=== PATIENT | female | born 1975 | race Two or more races ===

== ENCOUNTER 2025-02-21 01:29 | Inpatient (IN) | payer MEDICAID, OTHER ==
[2025-02-21] VITALS (7 sets, daily range): BP systolic 121–139; BP diastolic 66–77; PULSE 59–68; RESP 14–30; TEMP 97.5–98.2; O2SAT 95–100
[~2025-02-21] VITALS: Ht 149.9 cm; Wt 49.0 kg
--- NOTE | 2025-02-21 02:14 | ED.PDOC ---
History of Present Illness HPI Comments This is a 49-year-old female who denies any past medical history, presented to the ER with a chief complaint of lower abdominal pain for the past 1 day. Patient reports lower abdominal pain, diffuse, radiating to the back for 1 day, patient started vomiting earlier today, has experienced more than 10 vomits, watery to yellow color in nature, nonbloody, nonprojectile, she can not keep any solids or liquid food down at this time. Denies any urinary symptoms. Reports fevers and chills. Denies taking any medications. Reports that last bowel movement was earlier today. Last menstrual period 2 weeks back. Patient is not sexually active for the past 2 months. Past medical history: Denies Home medication: Denies Social history: Reports marijuana was, reports drinking socially, denies drug use. Family lives in [place], patient requested not to contact family Patient seen and examined in ER CBC, CMP ordered. 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 History: No Pertinent SUPERVISOR MIRROR FABRICATION History Constitutional: reports: chills, fever, weakness EENTM: denies: blurred vision, double vision, ear bleeding, ear discharge, ear drainage, ear pain, ear ringing, eye pain, eye redness, hearing loss, mouth pain, mouth swelling, nasal discharge, nose bleeding, nose congestion, nose pain, photophobia, tearing, throat pain, throat swelling, voice changes, others Respiratory: denies: cough, hemoptysis, orthopnea, SOB at rest, shortness of breath, SOB with excertion, stridor, wheezing, others Cardiovascular: denies: chest pain, dizzy spells, diaphoresis, Dyspnea on exertion, edema, irregular heart beat, left arm pain, lightheadedness, palpitations, PND, syncope, others Gastrointestinal: reports: abdominal pain, constipated, poor fluid intake Genitourinary: denies: abnormal vagina bleeding, burning, dyspareunia, dysuria, flank pain, frequency, hematuria, incontinence, pain, , vagina discharge, urgency, others Neurological: denies: dizziness, fainting, headache, left sided numbness, left sided weakness, numbness, paresthesia, pre-existing deficit, right sided numbness, right sided weakness, seizure, speech problems, tingling, tremors, weakness, others Musculoskeletal: denies: back pain, gout, joint pain, joint swelling, muscle pain, muscle stiffness, neck pain, others Integumetry: denies: bruises, change in color, change in hair/nails, dryness, laceration, lesions, lumps, rash, wounds, others Allergic/Immunocompromised: denies: Difficulty Healing, Frequent Infections, Hives, Itching, others Hematologic/Lymphatic: denies: anemia, blood clots, easy bleeding, easy bruising, swollen glands, others Endocrine: denies: excessive hunger, excessive sweating, excessive thirst, excessive urination, flushing, intolerance to cold, intolerance to heat, unexplained weight gain, unexplained weight loss, others Psychiatric: denies: anxiety, bipolar disorder, depression, hopeless, panic disorder, schizophrenia, sleepless, suicidal, others Physical Exam General Appearance: Moderate Distress, Normal HEENT: Normal ENT Inspection, Pharynx Normal, TMs Normal Neck: Full Range of Motion, Non-Tender, Normal, Normal Inspection Respiratory: Chest Non-Tender, Lungs Clear, No Accessory Muscle Use, No Respiratory Distress, Normal Breath Sounds Cardiovascular: No Edema, No JVD, No Murmur, No Gallop, Normal Peripheral Pulses, Regular Rate/Rhythm Breast Exam: Deferred Gastrointestinal: Normal Bowel Sounds, Soft, Tenderness Genitalia: Deferred Pelvic: Deferred Rectal: Deferred Extremities: No calf tenderness, Normal capillary refill, Normal inspection, Normal range of motion, Non-tender, No pedal edema Musculoskeletal : Apperance: Normal Neurologic: Alert, power and recovery supervisor II-XII nml as Tested, No Motor Deficits, Normal Affect, Normal Mood, No Sensory Deficits Cerebellar Function: Normal Reflexes: Normal Skin: Dry, Normal Color, Warm Lymphatic: No Adenopathy Was a procedure done? Was a procedure done?: No Differential Dx Considerations may include: Colitis/constipation/SBO/Alannah/UTI/pyelonephritis X-Ray, Labs, Meds, VS Vital Signs Date Time Temp Pulse Resp B/P (MAP) Pulse Ox O2 Delivery O2 Flow Rate FiO2 02/21/25 03:55 97.9 81 18 136/82 (100) 95 97.9 02/21/25 03:53 Room Air* 0 21 02/21/25 01:29 98.5 84 16 129/72 99 98.5 Lab Test 02/21/25 02:16 Range/Units White Blood Count 7.6 4.4-10.8 10^3/uL Red Blood Count 5.18 4.0-5.20 10^6/uL Hemoglobin 13.4 12.2-16.2 g/dL Hematocrit 41.8 36.0-46.0 % Mean Corpuscular Volume 80.6 80.0-100.0 fL Mean Corpuscular Hemoglobin 25.9 L 28.0-32.0 pg Mean Corpuscular Hemoglobin Concent 32.1 32.0-36.0 g/dL Red Cell Distribution Width 16.1 H 11.8-14.3 % Platelet Count 317 140-450 10^3/uL Mean Platelet Volume 7.2 6.9-10.8 fL Neutrophils (%) (Auto) 77.2 37.0-80.0 % Lymphocytes (%) (Auto) 18.7 10.0-50.0 % Monocytes (%) (Auto) 2.9 0.0-12.0 % Eosinophils (%) (Auto) 0.4 0.0-7.0 % Basophils (%) (Auto) 0.8 0.0-2.0 % Neutrophils # (Auto) 5.9 1.6-8.6 10 ^3/uL Lymphocytes # (Auto) 1.4 0.4-5.4 10 ^3/uL Monocytes # (Auto) 0.2 0-1.3 10 ^3/uL Eosinophils # (Auto) 0 0-0.8 10 ^3/uL Basophils # (Auto) 0.1 0-0.2 10 ^3/uL Nucleated Red Blood Cells 0.0 % Sodium Level 143 136-145 mmol/L Potassium Level 3.6 3.5-5.1 mmol/L Chloride Level 106 98-107 mmol/L Carbon Dioxide Level 27 20-31 mmol/L Anion Gap 10 5-15 Blood Urea Nitrogen 7 L 9-23 mg/dL Creatinine 0.86 0.550-1.02 mg/dL Glomerular Filtration Rate Calc 83 >90 mL/min BUN/Creatinine Ratio 8.1 L 10.0-20.0 Serum Glucose 164 H 74-106 mg/dL Calcium Level 9.0 8.7-10.4 mg/dL Lipase 28 12-53 U/L Beta HCG, Quantitative 0.6 L 1.5-4.2 mIU/mL Current Medications Medications (Trade) Dose Ordered Sig/Alex Route Start Time Stop Time Status Last Admin Ondansetron HCl (Zofran) 4 mg ONCE ONCE IM 02/21/25 02:15 02/21/25 02:18 DC 02/21/25 03:41 Ketorolac Tromethamine (Toradol Injection) 15 mg ONCE ONCE IV 02/21/25 03:00 02/21/25 03:03 DC 02/21/25 03:41 Time of 1ST Reevaluation: 03:00 Reevaluation 1ST: Unchanged Time of 2ND Reevaluation: 04:00 Reevaluation 2ND: Unchanged Patient Education/Counseling: Diagnosis, Treatment, Need For Follow Up Family Education/Counseling: No Family Present SEPSIS Sepsis Screen Date sepsis recognized/suspect: Feb 21, 2025 Time Sepsis recognized/suspect: 128 Recent Procedure: No On Antibiotic Therapy: No Respiratory Rate >20: No Heart Rate >90: No Temp<36 C (96.8 F) or >38.3 C: No SBP <90 or MAP <65 mmHG: No New Acute Mental Status Change: No Is the patient on CPAP, BIPAP,: No Physician Orders Urinalysis (02/21/25 02:09) Electrocardigram (02/21/25 02:09) Ct Ab Pel Wo Con-No Oral Or Iv (02/21/25 02:59) Npo (Nothing By Mouth) Diet (02/21/25 Breakfast) Ceftriaxone 1gm/50ml (Rocephin) (02/21/25 04:00) Metronidazole 500mg/100ml (Flagyl 500mg/ (02/21/25 04:00) Lactated Ringer's (02/21/25 04:00) Ng To Lis (02/21/25 03:52) Place Ng (02/21/25 03:52) Pantoprazole (Protonix) (02/21/25 04:15) Vital Signs Date Time Temp Pulse Resp B/P (MAP) Pulse Ox O2 Delivery O2 Flow Rate FiO2 02/21/25 03:55 97.9 81 18 136/82 (100) 95 97.9 02/21/25 03:53 Room Air* 0 21 02/21/25 01:29 98.5 84 16 129/72 99 98.5 Laboratory Tests Test 02/21/25 02:16 White Blood Count 7.6 10^3/uL (4.4-10.8) Medications Medications Dose Ordered Sig/Alex Route Start Time Stop Time Status Last Admin Dose Admin Ketorolac Tromethamine 15 mg ONCE ONCE IV 02/21/25 03:00 02/21/25 03:03 DC 02/21/25 03:41 Ondansetron HCl 4 mg ONCE ONCE IM 02/21/25 02:15 02/21/25 02:18 DC 02/21/25 03:41 Departure 1 Departure Time of Disposition: 04:00 Impression: Primary Impression: Large bowel obstruction Additional Impressions: Alannah syndrome Fecal impaction in rectum Disposition: 30 STILL A PATIENT Condition: Fair Additional Instructions: IV ceftriaxone, IV metronidazole, IV Protonix, IV LR NG to LIS NPO CT abdomen shows [place] syndrome, large bowel obstruction, maximum diameter less than 12 cm Patient we will be admitted to the facility Critical Care Note Critical Care Time?: No Stability Stability form required: INA Dasilva RESIDENT Feb 21, 2025 02:14
[2025-02-21 02:29] LABS: Hematocrit 41.8 % (36.0-46.0); Hemoglobin 13.4 g/dL (12.2-16.2); Mean Corpuscular Hemoglobin 25.9 pg (28.0-32.0); Mean Corpuscular Volume 80.6 fL (80.0-100.0); Nucleated Red Blood Cells % 0.0 %
[2025-02-21 02:37] LABS: Chloride 106 mmol/L (98-107); Potassium 3.6 mmol/L (3.5-5.1); Sodium 143 mmol/L (136-145)
[2025-02-21 02:38] LABS: Anion Gap 10 (5-15); Calcium 9.0 mg/dL (8.7-10.4); Carbon Dioxide 27 mmol/L (20-31)
[2025-02-21 02:43] LABS: BUN/Creatinine Ratio 8.1 (10.0-20.0)
[2025-02-21 02:54] LABS: Blood Urea Nitrogen 7 mg/dL (9-23); Glucose 164 mg/dL (74-106)
[2025-02-21] MEDS: ONDANSETRON HCL 4 MG/2 ML VIAL IM ONE (03:41)
[2025-02-21] MEDS: KETOROLAC TROMETH 30 MG/ML 1ML VIAL IV ONE (03:41)
--- NOTE | 2025-02-21 03:43 | DVH ---
Exam: CT CT AB PEL WO CON-NO ORAL OR IV History: Lower abdominal pain, intractable, radiating to back Comparison Study: None Technique: Multidetector spiral CT of the abdomen was performed from lung bases to pubic symphysis. I maging was performed without IV contrast. Axial, coronal and sagittal multiplanar reformats were obta ined from the axial data set by the technologist. Radiation Dose : 1. Abdomen/Pelvis: CTDIvol 5.08 mGy, DLP 252.59 mGy*cm. Findings: Evaluation of solid organs is limited due to lack of intravenous contrast use. Lung Bases: No acute or significant lung base finding. Normal heart size. No pleural or pericardial effusion. Liver: The liver is normal in size. No focal lesions. Gallbladder and Biliary Tree: Cholelithiasis. Spleen: Unremarkable Pancreas: The pancreas is grossly normal in appearance. Adrenal Glands: Unremarkable Kidneys: 1.9 cm focus of diminished parenchymal attenuation within the left interpolar kidney may rep resent a cyst, however, pyelonephritis can not be completely excluded. No evidence of calculi or hydr onephrosis. Bladder: Grossly unremarkable for degree of distention. Bowel: Small hiatal hernia with air-fluid level. Markedly dilated stool-filled primarily large bowel segments and evidence of rectal fecal impaction with maximum diameter measuring 9.4 cm. The appendix is not visualized; however, no secondary findings of acute appendicitis identified. Ascites: Absent Lymphadenopathy: No mesenteric, retroperitoneal or periportal lymphadenopathy. Abdominal Wall and Mesentery: Unremarkable. Vasculature: The visualized abdominal aorta is normal in size and caliber. Atherosclerotic vascular c alcifications. Evaluation of abdominal and pelvic vessels is limited due to lack of intravenous contr ast. Pelvic Organs: Unremarkable Musculoskeletal: No aggressive focal bony lesions, acute fractures or dislocation. IMPRESSION: 1. Markedly dilated stool-filled primarily large bowel segments and evidence of rectal fecal impactio n. 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 2. Small hiatal hernia with air-fluid level. 3. Cholelithiasis. 4. 1.9 cm focus of diminished parenchymal attenuation within the left interpolar kidney may represent a cyst, however, pyelonephritis can not be completely excluded. Radiation optimization: All CT scans at this facility use at least one of these dose optimization susannah hniques: automated exposure control mA and/or kV adjustment per patient size (includes targeted exam s where dose is matched to clinical indication) or iterative reconstruction.
[2025-02-21] MEDS: LACTATED RINGER'S 1,000 ML IV ONE (04:00)
[2025-02-21] MEDS ORDERED: SODIUM CHLORIDE 0.9% 1,000 ML IV SCH (05:15)
[2025-02-21] MEDS ORDERED: ONDANSETRON HCL 4 MG/2 ML VIAL IV PRN (05:15)
[2025-02-21] MEDS: SODIUM CHLORIDE 0.9% 500 ML IV ONE (05:46)
[2025-02-21] MEDS: PANTOPRAZOLE 40 MG/10 ML VIAL INJ IV SCH (05:46)
[2025-02-21] MEDS: PANTOPRAZOLE 40 MG/10 ML VIAL INJ IV ONE (05:50)
--- NOTE | 2025-02-21 06:16 | DVHHPRES ---
History of Present Illness Resident Creating Document: ANTHONY HURT RESIDENT History of Present Illness This is a 49-year-old female with no significant past medical history, presented to the ER with chief complain of abdominal pain. The pain started 2-3 days ago, described as sharp, 10/10, worsens with eating and drinking. The pain is associated with nausea, vomiting, abdominal swelling, constipation. She reportedly vomited 10 times yesterday and has not been able to put anything down because of nausea and vomiting. No blood seen in vomitus. The patient reported having chronic constipation, she reports this has been the most. She also reported unintentional weight loss 20 lb since last year. She denies taking any opioid medications at home, she has never completed any colonoscopy. Denies fever, diarrhea, blood in stools or dark-colored stools. PMHx: Chronic constipation PSHx: No surgeries in past Family history: History of cancer in grandfather, unsure Social history: Smoking 1 pack per day for 30 years, occasional alcohol use. Marijuana use (last use yesterday), reports no other drug use. Full code. Next of kin best friend (Barbara) Home medication: No home medications Allergic history: No known allergies Patient was examined at bedside today. She is in acute distress and is admitted for further evaluation and management. Try to place NG tube but failed, presented epistaxis after attempt. Review of Systems Gastrointestinal: Nausea, Vomiting, Abdominal Pain, Constipation Allergies: Coded Allergies: NO KNOWN ALLERGIES (Unverified , 02/21/25) Medications Current Medications Medications Dose Ordered Sig/Alex Route Start Time Stop Time Status Last Admin Dose Admin Ondansetron HCl 4 mg Q4HP PRN IV 02/21/25 05:15 Sodium Chloride 1,000 ml @ 50 mls/hr Q20H IV 02/21/25 05:15 Pantoprazole Sodium 40 mg DAILY IV 02/21/25 05:15 Exam Vital Signs Vital Signs Date Time Temp Pulse Resp B/P (MAP) Pulse Ox O2 Delivery O2 Flow Rate FiO2 02/21/25 03:55 97.9 81 18 136/82 (100) 95 97.9 02/21/25 03:53 Room Air* 0 21 Exam General: Patient is in Acute distress. Patient alert and oriented in person, place and time. Patient following commands. HEENT: Dry mucous membranes. Epistaxis after failed attempt of NG tube placement Respiratory/pulmonary: Clear lungs bilaterally, vesicular murmurs present in almost all lung liang, no associated crackles or wheezes. Cardiovascular: Normal heart sounds S1 and S2 with no associated murmurs Abdomen: Tense, distended abdomen, diffuse tenderness on palpation, tympanic sounds on percussion. Reduced bowel sound on auscultation Extremities: There is no peripheral edema present at the lower extremities. Peripheral Pulses: 3+ Radial (R). 3+ Radial (L). 3+ Dorsalis pedis (R). 3+ Dorsalis pedis(L) Skin: Dry scaly skin. No rashes or pruritus, there is no sacral edema present at this time. Neurological: Intact cranial nerves with no focal neurologic deficits ANGEL: Soft stool in rectum. No impaction, blood, external hemorrhoids on ANGEL. Sensation of stricture beyond rectal vault Labs/Xrays Labs Test 02/21/25 05:50 02/21/25 02:16 Range/Units White Blood Count 7.6 4.4-10.8 10^3/uL Red Blood Count 5.18 4.0-5.20 10^6/uL Hemoglobin 13.4 12.2-16.2 g/dL Hematocrit 41.8 36.0-46.0 % Mean Corpuscular Volume 80.6 80.0-100.0 fL Mean Corpuscular Hemoglobin 25.9 L 28.0-32.0 pg Mean Corpuscular Hemoglobin Concent 32.1 32.0-36.0 g/dL Red Cell Distribution Width 16.1 H 11.8-14.3 % Platelet Count 317 140-450 10^3/uL Mean Platelet Volume 7.2 6.9-10.8 fL Neutrophils (%) (Auto) 77.2 37.0-80.0 % Lymphocytes (%) (Auto) 18.7 10.0-50.0 % Monocytes (%) (Auto) 2.9 0.0-12.0 % Eosinophils (%) (Auto) 0.4 0.0-7.0 % Basophils (%) (Auto) 0.8 0.0-2.0 % Neutrophils # (Auto) 5.9 1.6-8.6 10 ^3/uL Lymphocytes # (Auto) 1.4 0.4-5.4 10 ^3/uL Monocytes # (Auto) 0.2 0-1.3 10 ^3/uL Eosinophils # (Auto) 0 0-0.8 10 ^3/uL Basophils # (Auto) 0.1 0-0.2 10 ^3/uL Nucleated Red Blood Cells 0.0 % Lipase 28 12-53 U/L Beta HCG, Quantitative 0.6 L 1.5-4.2 mIU/mL SEPSIS Sepsis Screen Date sepsis recognized/suspect: Feb 21, 2025 Time Sepsis recognized/suspect: 128 Recent Procedure: No On Antibiotic Therapy: No Respiratory Rate >20: No Heart Rate >90: No Temp<36 C (96.8 F) or >38.3 C: No SBP <90 or MAP <65 mmHG: No New Acute Mental Status Change: No Is the patient on CPAP, BIPAP,: No Physician Orders Urinalysis (02/21/25 02:09) Electrocardigram (02/21/25 02:09) Ct Ab Pel Wo Con-No Oral Or Iv (02/21/25 02:59) Npo (Nothing By Mouth) Diet (02/21/25 Breakfast) Lactated Ringer's (02/21/25 04:00) Ng To Lis (02/21/25 03:52) Place Ng (02/21/25 03:52) Admit (02/21/25 05:15) Allergies (02/21/25 05:15) Code Status (02/21/25 05:15) Ondansetron Hcl (Zofran) (02/21/25 05:15) Condition: Stable (02/21/25 05:15) Stat Ekg For Chest Pain (02/21/25 05:15) Notify Md Of Changes From Base (02/21/25 05:15) Emergency Dysrhythmia Protocol (02/21/25 05:15) Rhythm Strips Once Every Shift (02/21/25 05:15) Sodium Chloride 0.9% (02/21/25 05:15) Pantoprazole (Protonix) (02/21/25 05:15) * Gi Dvh Property Controller (02/21/25 05:15) * Surgical Consult (02/21/25 ) Drug Screen (02/21/25 05:15) Thyroid Stimulating Hormone (02/21/25 05:15) Magnesium (02/21/25 05:15) Phosphorus (02/21/25 05:15) Hemoglobin A1c (02/21/25 05:15) PTPTT (02/21/25 05:15) Vitamin B12 (02/21/25 05:15) Sequential Compression Device (02/21/25 05:32) Comprehensive Metabolic Panel (02/21/25 06:00) Lactic Acid W/ Reflex Order (02/21/25 06:12) Morphine Sulfate Injection (02/21/25 06:15) Vital Signs Date Time Temp Pulse Resp B/P (MAP) Pulse Ox O2 Delivery O2 Flow Rate FiO2 02/21/25 03:55 97.9 81 18 136/82 (100) 95 97.9 02/21/25 03:53 Room Air* 0 21 02/21/25 01:29 98.5 84 16 129/72 99 98.5 Laboratory Tests Test 02/21/25 02:16 White Blood Count 7.6 10^3/uL (4.4-10.8) Medications Medications Dose Ordered Sig/Alex Route Start Time Stop Time Status Last Admin Dose Admin Ceftriaxone Sodium 50 ml @ 100 mls/hr ONCE ONCE IV 02/21/25 04:00 02/21/25 04:29 DC 02/21/25 05:50 100 MLS/HR Ketorolac Tromethamine 15 mg ONCE ONCE IV 02/21/25 03:00 02/21/25 03:03 DC 02/21/25 03:41 15 MG Ondansetron HCl 4 mg ONCE ONCE IM 02/21/25 02:15 02/21/25 02:18 DC 02/21/25 03:41 4 MG Pantoprazole Sodium 40 mg ONCE ONCE IV 02/21/25 04:15 02/21/25 04:16 DC 02/21/25 05:50 40 MG Sodium Chloride 500 ml @ 500 mls/hr Q1H ONCE IV 02/21/25 05:15 02/21/25 06:14 DC 02/21/25 05:46 500 MLS/HR Assessment/Plan Assessment/Plan Acute Bowel Obstruction Rule out GI malignancy [place] syndrome Chronic constipation Acute abdomen Surgery, GI consulted CT abdomen showed Markedly dilated stool-filled primarily large bowel segments and evidence of rectal fecal impaction. NPO for bowel rest IV NS bolus and maintenance IV morphine for pain management IV pantoprazole ordered Ordered NG tube placement Small hiatal hernia Cholelithiasis Kidney cyst CT abdomen shows small hiatal hernia, cholelithiasis, 1.9 cm cyst History of cannabinoid use Drug screen ordered DIET: NPO for bowel rest DVT PROPHYLAXIS: Sequential compression device GI PROPHYLAXIS: Protonix CODE STATUS: Goals of care discussed with patient, nurses at bedside for more than 35 minutes. Full code DISPOSITION: Med/surge Patient's status and plan discussed with the patient. Case discussed with Dr. Sarmiento. Plan discussed with: Patient, Other (Nurses) My Orders Orders - ANTHONY HURT RESIDENT Procedure Category Date Status Time Morphine Sulfate PHA 02/21/25 Transmitted Injection 06:15 Date of Service: Feb 21, 2025 Billing Provider: NANCY SARMIENTO MD Common Visit Codes: 27744-ZOLOWER INP/OBS CARE (HIGH) Secondary Visit Codes: 84201-[id number] CARE PLAN 30 MINUTES ANTHONY HURT RESIDENT Feb 21, 2025 06:16 BOB BENOIT Feb 21, 2025 08:34
[2025-02-21 06:24] LABS: Alanine Aminotransferase 15 U/L (7-40); Albumin 4.1 g/dL (3.2-4.8); Alkaline Phosphatase 71 U/L (46-116); Anion Gap 10 (5-15); BUN/Creatinine Ratio 10.0 (10.0-20.0); Bilirubin, Total 0.7 mg/dL (0.2-1.0); Blood Urea Nitrogen 8 mg/dL (9-23); Calcium 9.0 mg/dL (8.7-10.4); Carbon Dioxide 26 mmol/L (20-31); Chloride 107 mmol/L (98-107); Glucose 120 mg/dL (74-106); Potassium 3.7 mmol/L (3.5-5.1); Sodium 143 mmol/L (136-145); Total Protein 7.2 g/dL (5.7-8.2)
[2025-02-21 06:28] LABS: INR 1.04 (0.9-1.15); Partial Thromboplastin Time 27.0 SEC (24.5-34.5); Prothrombin Time 11.0 sec (9.3-11.8)
[2025-02-21] MEDS: MORPHINE SULFATE INJ 2 MG/ml SYRG IV PRN (06:28)
[2025-02-21 06:29] LABS: Magnesium 1.9 mg/dL (1.6-2.6)
[2025-02-21 08:01] LABS: Hematocrit 39.8 % (36.0-46.0); Hemoglobin 13.0 g/dL (12.2-16.2); Mean Corpuscular Hemoglobin 26.2 pg (28.0-32.0); Mean Corpuscular Volume 80.4 fL (80.0-100.0); Nucleated Red Blood Cells % 0.1 %
--- NOTE | 2025-02-21 08:16 | DVH ---
Date: 02/21/2025 07:20 AM Examination: XY KUB ABDOMEN SINGLE VIEW History: pneumoperitoneum Comparison: CT CT AB PEL WO CON-NO ORAL OR IV on DOS: 02/21/25 TECHNIQUE: Frontal views of the abdomen was obtained. FINDINGS: Markedly dilated stool-filled primarily large bowel segments and evidence of rectal fecal impaction. 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 The lung bases are unremarkable. No acute osseous abnormality identified. IMPRESSION: Markedly dilated stool-filled primarily large bowel segments and evidence of rectal fecal impaction. Findings are consistent with possible [place] syndrome.
[2025-02-21] MEDS: LACTATED RINGER'S 1,000 ML IV SCH (10:09)
--- NOTE | 2025-02-21 11:12 | DVHINCON2 ---
Consultation - Surgical Date Seen: Feb 21, 2025 Referring Physician Reason for Consultation Extreme constipation with rectal fecal impaction History of Present Illness History of Present Illness Mrs. Lindo this is a 49-year-old female who presented to the ED with 3 days of abdominal distention associated with nausea vomiting and no bowel movement, but passing flatus. Patient states that she does not have the greatest diet, eats a lot of junk food and suffers from chronic constipation. She stated that this morning she had a very tiny bowel movement and had a push a lot for it. Denies any fevers, chills, changes in urinary habits, personal family history of shade williamson. Patient has never had a upper or lower endoscopy. States that she had a 20 lb weight loss in the last 11 month but it was due to being depressed and stressed. Denies loss of appetite. Past Medical/Surgical History Past Medical/Surgical History PMH sinusitis, seasonal allergies, constipation PSH denies Family and Social History Family and Social History Family history of breast cancer on mom's and dad's side T Ob 34 pack year smoking history ETOH occasional Drugs marijuana occasional Allergies and medications Allergies: Coded Allergies: NO KNOWN ALLERGIES (Unverified , 02/21/25) Home Meds No Active Prescriptions or Reported Meds Review of systems Review of Systems: HEENT:Normal, CVS:Normal, RESPIRATORY:Normal, GI:Abnormal (See HPI), :Normal, MSK:Normal, NEURO:Normal Examination Vital signs Vital Signs Date Time Temp Pulse Resp B/P (MAP) Pulse Ox O2 Delivery O2 Flow Rate FiO2 02/21/25 07:57 98.1 67 16 125/74 (91) 100 98.1 02/21/25 03:53 Room Air* 0 21 Medications Current Medications Medications (Trade) Dose Ordered Sig/Alex Route PRN Reason Start Time Stop Time Status Last Admin Ondansetron HCl (Zofran) 4 mg Q4HP PRN IV NAUSEA / VOMITING 02/21/25 05:15 Sodium Chloride 1,000 ml @ 50 mls/hr Q20H IV 02/21/25 05:15 02/21/25 07:12 DC Pantoprazole Sodium (Protonix) 40 mg DAILY IV 02/21/25 05:15 Morphine Sulfate 2 mg Q4HPRN PRN IV SEVERE PAIN (7-10 PAIN SCALE) 02/21/25 06:15 02/21/25 06:28 Lactated Ringer's 1,000 ml @ 75 mls/hr [id number] IV 02/21/25 07:15 02/21/25 10:09 Laboratory Labs Test 02/21/25 08:05 02/21/25 05:50 02/21/25 02:16 Range/Units Lactic Acid Level 1.1 0.4-2.0 mmol/L White Blood Count 7.3 4.4-10.8 10^3/uL Red Blood Count 4.96 4.0-5.20 10^6/uL Hemoglobin 13.0 12.2-16.2 g/dL Hematocrit 39.8 36.0-46.0 % Mean Corpuscular Volume 80.4 80.0-100.0 fL Mean Corpuscular Hemoglobin 26.2 L 28.0-32.0 pg Mean Corpuscular Hemoglobin Concent 32.6 32.0-36.0 g/dL Red Cell Distribution Width 15.9 H 11.8-14.3 % Platelet Count 295 140-450 10^3/uL Mean Platelet Volume 8.0 6.9-10.8 fL Neutrophils (%) (Auto) 88.4 H 37.0-80.0 % Lymphocytes (%) (Auto) 9.0 L 10.0-50.0 % Monocytes (%) (Auto) 2.3 0.0-12.0 % Eosinophils (%) (Auto) 0.0 0.0-7.0 % Basophils (%) (Auto) 0.3 0.0-2.0 % Neutrophils # (Auto) 6.5 1.6-8.6 10 ^3/uL Lymphocytes # (Auto) 0.7 0.4-5.4 10 ^3/uL Monocytes # (Auto) 0.2 0-1.3 10 ^3/uL Eosinophils # (Auto) 0 0-0.8 10 ^3/uL Basophils # (Auto) 0 0-0.2 10 ^3/uL Nucleated Red Blood Cells 0.1 % Prothrombin Time 11.0 9.3-11.8 sec Prothrombin Time INR 1.04 0.9-1.15 Activated Partial Thromboplast Time 27.0 24.5-34.5 SEC Sodium Level 143 136-145 mmol/L Potassium Level 3.7 3.5-5.1 mmol/L Chloride Level 107 98-107 mmol/L Carbon Dioxide Level 26 20-31 mmol/L Anion Gap 10 5-15 Blood Urea Nitrogen 8 L 9-23 mg/dL Creatinine 0.80 0.550-1.02 mg/dL Glomerular Filtration Rate Calc 91 >90 mL/min BUN/Creatinine Ratio 10.0 10.0-20.0 Serum Glucose 120 H 74-106 mg/dL Hemoglobin A1c 5.2 <5.7 % A1C Calcium Level 9.0 8.7-10.4 mg/dL Phosphorus Level 3.6 2.4-5.1 mg/dL Magnesium Level 1.9 1.6-2.6 mg/dL Total Bilirubin 0.7 0.2-1.0 mg/dL Aspartate Amino Transferase (AST) 25 13-40 U/L Alanine Aminotransferase (ALT) 15 7-40 U/L Alkaline Phosphatase 71 46-116 U/L Total Protein 7.2 5.7-8.2 g/dL Albumin 4.1 3.2-4.8 g/dL Vitamin B12 Level 593 211-911 pg/mL Thyroid Stimulating Hormone (TSH) 2.09 0.55-4.78 uIU/mL Lipase 28 12-53 U/L Beta HCG, Quantitative 0.6 L 1.5-4.2 mIU/mL Examination: GENERAL:Normal, ABDOMEN:Abnormal (Very distended, soft, depressible, nontender), Any Other System: (Rectal: No fissures, no hemorrhoids, intact tone, no masses, soft stool throughout rectal vault, no gross blood) Problem List/Assessment/Plan Problems: (1) Constipation (2) Fecal impaction in rectum Assessment and Plan Mrs. Lindo same 49-year-old female who presented with severe constipation that started [address] was reviewed and it shows reece dilation of the colon and rectum with large quantities of fecal material throughout. Patient states she continues to have tiny bowel movements and passing gas. ANGEL performed at bedside, no masses felt, stool in the rectal vault (soft). Patient will benefit from aggressive bowel regimen with p.o. and rectal cathartics. Recommend 1. Soapsuds enemas every 6 hours for 24 hours 2. After 24 hours of soapsuds enemas, can give 1 gal of GoLYTELY 3. We will continue to monitor Plan discussed with Plan discussed with: Patient Visit Coding Surgery Date of Service if different f: Feb 21, 2025 Billing Provider: ADDISON VELAZCO MD Surgery Visit Codes: 43346 - INP CONSULT <110 MIN ADDISON VELAZCO MD Feb 21, 2025 11:12
--- NOTE | 2025-02-21 14:01 | DVHPNRES ---
Progress Note Date Seen: Feb 21, 2025 Resident Creating Document: LUCAS SEGOVIA RESIDENT Medical Necessity Reason Pt with a Central, PICC or Fol: No Subjective Review of Systems This is a 49-year-old female with no significant past medical history, presented to the ER with chief complain of abdominal pain. The pain started 2-3 days ago, described as sharp, 10/10, worsens with eating and drinking. The pain is associated with nausea, vomiting, abdominal swelling, constipation. She reportedly vomited 10 times yesterday and has not been able to put anything down because of nausea and vomiting. No blood seen in vomitus. The patient reported having chronic constipation alternating with diarrhea, she reports this has been the most. She also reported unintentional weight loss 20 lb since last year. She denies taking any opioid medications at home, she has never completed any colonoscopy. Denies fever, diarrhea, blood in stools or dark-colored stools. PMHx: Chronic constipation PSHx: No surgeries in past Family history: History of cancer in grandfather, unsure Social history: Smoking 1 pack per day for 30 years, occasional alcohol use. Marijuana use (last use yesterday), reports no other drug use. Full code. Next of kin best friend (Barbara) Home medication: No home medications Allergic history: No known allergies The patient was seen and examined at bedside. Overnight events were reviewed. The patient reported having chronic constipation alternating with diarrhea, she also have episodes of belching with excessive flatulence. This morning, the patient had a small amount of bowel movement after a lot of straining. Reports improvement in her abdominal pain. She had several episodes of vomiting since yesterday, however she did not have any since morning. The patient denies any chest pain, shortness of breath, fever, urinary symptoms. Objective vital signs Vital Sign Date Time Temp Pulse Resp B/P (MAP) Pulse Ox O2 Delivery O2 Flow Rate FiO2 02/21/25 07:57 98.1 67 16 125/74 (91) 100 98.1 02/21/25 03:53 Room Air* 0 21 medications Current Medications Medications Dose Ordered Sig/Alex Route Start Time Stop Time Status Last Admin Dose Admin Ondansetron HCl 4 mg Q4HP PRN IV 02/21/25 05:15 Pantoprazole Sodium 40 mg DAILY IV 02/21/25 05:15 Morphine Sulfate 2 mg Q4HPRN PRN IV 02/21/25 06:15 02/21/25 06:28 2 MG Lactated Ringer's 1,000 ml @ 75 mls/hr [id number] IV 02/21/25 07:15 02/21/25 10:09 75 MLS/HR Examination Pt is lying on bed General Appearance: Alert, Oriented X3, Cooperative, Mild distress HEENT: Atraumatic, Mucous membranes moist/pink Respiratory: Clear to auscultation, Normal air movement, No added sounds Cardiovascular: Regular rate, Normal S1, Normal S2, No murmurs Abdominal/ : High-pitched bowel sounds, hard, abdominal distention, mild diffuse tenderness, shifting dullness negative. 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 X-ray KUB: Markedly dilated stool-filled primarily large bowel segments and evidence of rectal fecal impaction. 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 NPO except ice chips for bowel rest IV NS bolus and maintenance IV morphine for pain management IV pantoprazole ordered Hold off NG tube placement, unless the patient starts vomiting. Surgery recommendations appreciated. Soapsuds enemas every 6 hours for 24 hours. After 24 hours of soapsuds enemas, 1 gal of Golytely GI consult stations also recommended to continue with enema and monitoring. The patient is counseled to eat high-fiber diet. Small hiatal hernia Cholelithiasis Kidney cyst CT abdomen shows small hiatal hernia, cholelithiasis, 1.9 cm cyst Pantoprazole Monitor signs symptoms. History of cannabinoid use Drug screen ordered GI prophylaxis: Pantoprazole DVT prophylaxis: SCDs Diet: NPO except ice chips Goals of care discussed with the patient for more than 27 minutes: Full code status Case discussed with Dr. Narvaez, patient and RN Plan discussed with: Patient, Other (RN) My Orders My Orders Orders - LUCAS SEGOVIA Procedure Category Date Status Time Tap Water Enema ORDERS 02/21/25 Transmitted 08:02 * Gi D[facility] Student Outreach Coordinator CONS 02/21/25 Transmitted 12:46 * Debt Management Counselor CONS 02/21/25 Transmitted Consult Date of Service: Feb 21, 2025 Billing Provider: BOB NARVAEZ MD Common Visit Codes: [id number] INP/OBS CARE(HIGH) Secondary Visit Codes: [id number] CARE PLAN 30 MINUTES LUCAS SEGOVIA Feb 21, 2025 14:01 BOB NARVAEZ MD Feb 23, 2025 00:46
--- NOTE | 2025-02-21 15:21 | DVHINCON2 ---
GI Consult Consult Note GI consult note Date of Consultation: 02/21/2025 Chief Complaint: Bowel obstruction Referring Physician: Dr. Fields H&P: 49-year-old female admitted with complains of abdominal pain which started about three days ago, described as sharp and seems to worsen when eating and drinking. Patient also has moderate abdominal bloating. Had nausea and vomiting two days ago. No nausea or vomiting at this time. Denies hematemesis. Patient has history of constipation, which has been worse in the past two years. No colonoscopy in past. Patient admits to weight loss of 20 lb. Patient has been having multiple bowel movements after the enema. No melena or red blood in stool Past Medical History: Chronic constipation Past Surgical History: Denies Social History: Smoking 1 pack per day for 30 years, occasional alcohol use. Marijuana use (last use yesterday), reports no other drug use. Family History: Noncontributory Review of Systems: Constitutional: no fever, chill, weight loss HEENT: no eye pain, no hearing loss, no oral lesion, no scleral icterus Heart: no chest pain, no chest pressure Lung: no cough, no dyspnea with exertion Abdomen: see HPI Physical exam: General: NAD, AAOX3 Chest: lung liang clear to auscultation Heart: RRR, no murmur Abdomen: Moderate-distended, diffuse mild tenderness to palpation, +BS Labs: Labs Test 02/21/25 08:05 02/21/25 05:50 02/21/25 02:16 Range/Units Lactic Acid Level 1.1 0.4-2.0 mmol/L White Blood Count 7.3 4.4-10.8 10^3/uL Red Blood Count 4.96 4.0-5.20 10^6/uL Hemoglobin 13.0 12.2-16.2 g/dL Hematocrit 39.8 36.0-46.0 % Mean Corpuscular Volume 80.4 80.0-100.0 fL Mean Corpuscular Hemoglobin 26.2 L 28.0-32.0 pg Mean Corpuscular Hemoglobin Concent 32.6 32.0-36.0 g/dL Red Cell Distribution Width 15.9 H 11.8-14.3 % Platelet Count 295 140-450 10^3/uL Mean Platelet Volume 8.0 6.9-10.8 fL Neutrophils (%) (Auto) 88.4 H 37.0-80.0 % Lymphocytes (%) (Auto) 9.0 L 10.0-50.0 % Monocytes (%) (Auto) 2.3 0.0-12.0 % Eosinophils (%) (Auto) 0.0 0.0-7.0 % Basophils (%) (Auto) 0.3 0.0-2.0 % Neutrophils # (Auto) 6.5 1.6-8.6 10 ^3/uL Lymphocytes # (Auto) 0.7 0.4-5.4 10 ^3/uL Monocytes # (Auto) 0.2 0-1.3 10 ^3/uL Eosinophils # (Auto) 0 0-0.8 10 ^3/uL Basophils # (Auto) 0 0-0.2 10 ^3/uL Nucleated Red Blood Cells 0.1 % Prothrombin Time 11.0 9.3-11.8 sec Prothrombin Time INR 1.04 0.9-1.15 Activated Partial Thromboplast Time 27.0 24.5-34.5 SEC Sodium Level 143 136-145 mmol/L Potassium Level 3.7 3.5-5.1 mmol/L Chloride Level 107 98-107 mmol/L Carbon Dioxide Level 26 20-31 mmol/L Anion Gap 10 5-15 Blood Urea Nitrogen 8 L 9-23 mg/dL Creatinine 0.80 0.550-1.02 mg/dL Glomerular Filtration Rate Calc 91 >90 mL/min BUN/Creatinine Ratio 10.0 10.0-20.0 Serum Glucose 120 H 74-106 mg/dL Hemoglobin A1c 5.2 <5.7 % A1C Calcium Level 9.0 8.7-10.4 mg/dL Phosphorus Level 3.6 2.4-5.1 mg/dL Magnesium Level 1.9 1.6-2.6 mg/dL Total Bilirubin 0.7 0.2-1.0 mg/dL Aspartate Amino Transferase (AST) 25 13-40 U/L Alanine Aminotransferase (ALT) 15 7-40 U/L Alkaline Phosphatase 71 46-116 U/L Total Protein 7.2 5.7-8.2 g/dL Albumin 4.1 3.2-4.8 g/dL Vitamin B12 Level 593 211-911 pg/mL Thyroid Stimulating Hormone (TSH) 2.09 0.55-4.78 uIU/mL Lipase 28 12-53 U/L Beta HCG, Quantitative 0.6 L 1.5-4.2 mIU/mL Imaging: CT abdomen pelvis IMPRESSION: 1. Markedly dilated stool-filled primarily large bowel segments and evidence of rectal fecal impaction. 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 2. Small hiatal hernia with air-fluid level. 3. Cholelithiasis. 4. 1.9 cm focus of diminished parenchymal attenuation within the left interpolar kidney may represent a cyst, however, pyelonephritis can not be completely excluded. KUB IMPRESSION: Markedly dilated stool-filled primarily large bowel segments and evidence of rectal fecal impaction. 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 Assessment: Constipation Fecal impaction Plan: Discussed with Dr. Dicksno Rogel We will continue to monitor patient Discussed plan with patient and RN Date of Service: Feb 21, 2025 Billing Provider: LANEY ORTIZ Common Visit Codes: CONSULT ONLY Consultation Codes: [id number] CONSULT <60MIN LANEY ORTIZ Feb 21, 2025 15:21
[2025-02-22 01:00] VITALS: BP 105/65; PULSE 80; RESP 14; TEMP 97.5; O2SAT 98
[2025-02-22 05:00] VITALS: BP 119/69; PULSE 69; RESP 18; TEMP 97.7; O2SAT 98
[2025-02-22 07:28] LABS: Nucleated Red Blood Cells % 0.1 %
[2025-02-22 07:31] LABS: Hematocrit 37.5 % (36.0-46.0); Hemoglobin 12.0 g/dL (12.2-16.2); Mean Corpuscular Hemoglobin 26.3 pg (28.0-32.0); Mean Corpuscular Volume 81.9 fL (80.0-100.0)
[2025-02-22 07:32] LABS: Chloride 102 mmol/L (98-107); Potassium 4.1 mmol/L (3.5-5.1)
[2025-02-22 07:33] LABS: Anion Gap 12 (5-15); Carbon Dioxide 22 mmol/L (20-31)
[2025-02-22 07:38] LABS: BUN/Creatinine Ratio 10.3 (10.0-20.0)
[2025-02-22 07:42] LABS: Blood Urea Nitrogen 7 mg/dL (9-23); Calcium 8.6 mg/dL (8.7-10.4); Glucose 74 mg/dL (74-106); Sodium 136 mmol/L (136-145)
[2025-02-22 09:00] VITALS: BP 109/69; PULSE 65; RESP 18; TEMP 98.1; O2SAT 98
--- NOTE | 2025-02-22 10:19 | DVHPN2 ---
Progress Note - Dictate Date Seen: Feb 22, 2025 Medical Necessity Reason Pt with a Central, PICC or Fol: No Subjective Multiple bowel movements( 11) recorded vital signs Vital Sign Date Time Temp Pulse Resp B/P (MAP) Pulse Ox O2 Delivery O2 Flow Rate FiO2 02/22/25 08:00 Room Air* 0 21 02/22/25 05:00 97.7 69 18 119/69 (86) 98 97.7 Total Intake and Output 02/21/25 02/21/25 02/22/25 15:00 23:00 07:00 Intake Total 1000 ml Balance 1000 ml medications Current Medications Medications Dose Ordered Sig/Alex Route Start Time Stop Time Status Last Admin Dose Admin Ondansetron HCl 4 mg Q4HP PRN IV 02/21/25 05:15 Pantoprazole Sodium 40 mg DAILY IV 02/21/25 05:15 02/22/25 10:06 40 MG Morphine Sulfate 2 mg Q4HPRN PRN IV 02/21/25 06:15 02/21/25 06:28 2 MG Lactated Ringer's 1,000 ml @ 75 mls/hr [id number] IV 02/21/25 07:15 02/22/25 05:11 75 MLS/HR objective General: NAD, AAOX3 Chest: lung liang clear to auscultation Heart: RRR, no murmur Abdomen: Moderate-distended, diffuse mild tenderness to palpation, +BS laboratory and microbiology Laboratory Tests 02/22/25 06:55 Test 02/22/25 06:55 Range/Units Serum Glucose 74 74-106 mg/dL Problems(with codes): (1) Constipation (2) Alannah syndrome (3) Fecal impaction in rectum (4) Large bowel obstruction Prognosis Plan Advance diet as tolerated Maintained on stool softeners and MiraLax daily Outpatient follow up with GI Services to discuss elective colonoscopy for colon cancer screening Plan discussed with: Other (Arlet Glass) ZANE GIBSON MD Feb 22, 2025 10:19
--- NOTE | 2025-02-22 10:36 | DVH ---
Date: 02/22/2025 09:13 AM Examination: XY KUB ABDOMEN SINGLE VIEW History: obstruction, abdominal distension Comparison: XY KUB ABDOMEN SINGLE VIEW on DOS: 02/21/25, CT CT AB PEL WO CON-NO ORAL OR IV on DOS: 01/29 10/21 TECHNIQUE: Frontal views of the abdomen was obtained. Findings:Markedly dilated stool-filled primarily large bowel segments and evidence of rectal fecal im paction. 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 The lung bases are unremarkable. No acute osseous abnormality identified.Impression: No interval change.
[2025-02-22 12:33] LABS: Urine Protein, UAD Negative (Negative)
[2025-02-22 12:59] LABS: Cannabinoid Screen, Urine Pos (NEGATIVE); Cocaine Screen, Urine Neg (NEGATIVE)
[2025-02-22 13:00] VITALS: BP 130/78; PULSE 70; RESP 18; TEMP 98.1; O2SAT 99
[2025-02-22 13:02] LABS: Amphetamine Screen, Urine Neg (NEGATIVE)
[2025-02-22 13:03] LABS: Barbiturate Scree,Urine Neg (NEGATIVE); Benzodiazephine Screen, Urine Neg (NEGATIVE); Opiate Scree,Urine Neg (NEGATIVE)
--- NOTE | 2025-02-22 13:03 | DVHPN2 ---
Progress Note - Surgical Date Seen: Feb 22, 2025 Post op day Post op day: 0 Subjective Patient reports: Feels better (Patient feeling better, less distended, not nauseous, no vomiting.) Review of Systems: Deferred Objective Vital signs Vital Sign Date Time Temp Pulse Resp B/P (MAP) Pulse Ox O2 Delivery O2 Flow Rate FiO2 02/22/25 09:00 98.1 65 18 109/69 (82) 98 98.1 02/22/25 08:00 Room Air* 0 21 Total Intake and Output 02/21/25 02/21/25 02/22/25 15:00 23:00 07:00 Intake Total 1000 ml Balance 1000 ml Medications Current Medications Medications Dose Ordered Sig/Alex Route Start Time Stop Time Status Last Admin Dose Admin Ondansetron HCl 4 mg Q4HP PRN IV 02/21/25 05:15 Pantoprazole Sodium 40 mg DAILY IV 02/21/25 05:15 02/22/25 10:06 40 MG Morphine Sulfate 2 mg Q4HPRN PRN IV 02/21/25 06:15 02/21/25 06:28 2 MG Lactated Ringer's 1,000 ml @ 75 mls/hr [id number] IV 02/21/25 07:15 02/22/25 05:11 75 MLS/HR Laboratory Laboratory Tests 02/22/25 06:55 Test 02/22/25 06:55 Range/Units Serum Glucose 74 74-106 mg/dL Examination: GENERAL:Normal, ABDOMEN:Abnormal (Distended (less than yesterday), soft, depressible, nontender.) Labs and/or images reviewed: Labs reviewed by me (Labs within normal limits) Problem List/Assessment/Plan Problems: (1) Constipation Assessment and Plan Mrs. Lindo same 49-year-old female who presented with severe constipation that started [address] was reviewed and it shows reece dilation of the colon and rectum with large quantities of fecal material throughout. Patient states she continues to have tiny bowel movements and passing gas. ANGEL performed at bedside, no masses felt, stool in the rectal vault (soft). Patient will benefit from aggressive bowel regimen with p.o. and rectal cathartics. Interval: Soapsuds enemas were helpful in getting some of the stool volume out, patient today's less distended and softer. She is not feeling nauseous or vomiting anymore. She will definitely benefit from GoLYTELY administration today. Recommend 1. 1 gal of GoLYTELY today 2. We will continue to monitor Plan discussed with Plan discussed with: Patient Visit Coding Surgery Date of Service if different f: Feb 22, 2025 Billing Provider: ADDISON VELAZCO MD Surgery Visit Codes: [id number] INP/OBS CARE(HIGH) ADDISON VELAZCO MD Feb 22, 2025 13:03
[2025-02-22 13:25] LABS: Phencyclidine Screen, Urine NEGATIVE (NEGATIVE)
[2025-02-22] MEDS: GOLYTELY 4L KIT PO ONE (14:06)
[2025-02-22] MEDS ORDERED: CLINIMIX PER PHARMACY 0 ML IV SCH (15:15)
--- NOTE | 2025-02-22 16:08 | DVHPNRES ---
Progress Note Date Seen: Feb 22, 2025 Resident Creating Document: JULIETTE,LUCAS RESIDENT Medical Necessity Reason Pt with a Central, PICC or Fol: No Subjective Review of Systems This is a 49-year-old female with no significant past medical history, presented to the ER with chief complain of abdominal pain. The pain started 2-3 days ago, described as sharp, 10/10, worsens with eating and drinking. The pain is associated with nausea, vomiting, abdominal swelling, constipation. She reportedly vomited 10 times yesterday and has not been able to put anything down because of nausea and vomiting. No blood seen in vomitus. The patient reported having chronic constipation alternating with diarrhea, she reports this has been the most. She also reported unintentional weight loss 20 lb since last year. She denies taking any opioid medications at home, she has never completed any colonoscopy. Denies fever, diarrhea, blood in stools or dark-colored stools. PMHx: Chronic constipation PSHx: No surgeries in past Family history: History of cancer in grandfather, unsure Social history: Smoking 1 pack per day for 30 years, occasional alcohol use. Marijuana use (last use yesterday), reports no other drug use. Full code. Next of kin best friend (Barbara) Home medication: No home medications Allergic history: No known allergies The patient was seen and examined at bedside. Overnight events were reviewed. The patient reports improvement in her symptoms, she denies any abdominal pain, nausea, or vomiting today. With enema, she passed some amount of stool, she feels her abdomen is soft today. The patient was very grateful for the outcome. Objective vital signs Vital Sign Date Time Temp Pulse Resp B/P (MAP) Pulse Ox O2 Delivery O2 Flow Rate FiO2 02/22/25 13:00 98.1 70 18 130/78 (95) 99 98.1 02/22/25 08:00 Room Air* 0 21 Total Intake and Output 02/21/25 02/21/25 02/22/25 15:00 23:00 07:00 Intake Total 1000 ml Balance 1000 ml medications Current Medications Medications Dose Ordered Sig/Alex Route Start Time Stop Time Status Last Admin Dose Admin Ondansetron HCl 4 mg Q4HP PRN IV 02/21/25 05:15 Pantoprazole Sodium 40 mg DAILY IV 02/21/25 05:15 02/22/25 10:06 40 MG Morphine Sulfate 2 mg Q4HPRN PRN IV 02/21/25 06:15 02/21/25 06:28 2 MG Lactated Ringer's 1,000 ml @ 75 mls/hr [id number] IV 02/21/25 07:15 02/22/25 05:11 75 MLS/HR Amino Acids 0 ml @ 0 mls/hr PER PHARMACY IV 02/22/25 15:15 Amino Acids/ Electrolytes/ Dextrose 1,000 ml @ 41 mls/hr DAILY@2200 IV 02/22/25 22:00 Diagnostic Test (Pha) 1 strip Q6HR 02/23/25 00:00 Insulin Human Regular FOLLOW SLIDING SCALE Q6HR SC 02/23/25 00:00 Dextrose 50 ml UD IV 02/22/25 22:00 Examination Examination Pt is lying on bed General Appearance: Alert, Oriented X3, Cooperative, Mild distress HEENT: Atraumatic, Mucous membranes moist/pink Respiratory: Clear to auscultation, Normal air movement, No added sounds Cardiovascular: Regular rate, Normal S1, Normal S2, No murmurs Abdominal/ : Bowel sounds present, abdomen is soft but tender, mildly distended. No shifting dullness present. 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 X-ray KUB on 02/21/2025: Markedly dilated stool-filled primarily large bowel segments and evidence of rectal fecal impaction. Findings are consistent with possible [place] syndrome. X-ray KUB on 02/22/2025:Markedly dilated stool-filled primarily large bowel segments and evidence of rectal fecal impaction. Findings are consistent with possible [place] syndrome. The lung bases are unremarkable. No acute osseous abnormality identified.Impression: No interval change. Surgery recommendations appreciated: NPO GoLYTELY enema today. Magnesium, phosphorus level ordered, pending results IV amino acid infusion Clinimix per pharmacy PEG 3350 KCl sodium bicarb 1 kit p.o. once 1. IV NS bolus and maintenance IV morphine for pain management IV pantoprazole ordered Hold off NG tube placement, unless the patient starts vomiting. GI consultstations also recommended to continue with enema and monitoring. The patient is counseled to eat high-fiber diet. Normocytic normochromic anemia Anemia of chonic disease monitor labs Hyperglycemia Glucose Accu-Chek every 6 hours. HbA1c 5.2 Small hiatal hernia Cholelithiasis Kidney cyst CT abdomen shows small hiatal hernia, cholelithiasis, 1.9 cm cyst Pantoprazole Monitor signs symptoms. Marijuana and tobacco use disorder drug screen positive Counseled on marijuana/tobacco use cessation for 22 minutes; exclusively 12 minutes for tobacco use cessation GI prophylaxis: Pantoprazole DVT prophylaxis: SCDs Diet: NPO Goals of care discussed with the patient for 20 minutes: Full code status Case discussed with Dr. Youssef, patient and RN Plan discussed with: Patient, Other (RN) Plan discussed with: Patient, Other (RN) My Orders My Orders Orders - LUCAS SEGOVIA RESIDENT Procedure Category Date Status Time Npo Except Ice Chips JAKOB 02/21/25 In Process 17:47 Communication Order ORDERS 02/22/25 Transmitted 08:11 Date of Service: Feb 22, 2025 Billing Provider: MARY BETH YOUSSEF MD Common Visit Codes: [id number] INP/OBS CARE(HIGH) Secondary Visit Codes: [id number] CHNG SMOKING >10MIN (Counseled on marijuana/tobacco use cessation for 22 minutes; exclusively 12 minutes for tobacco use cessation), [id number] CARE PLAN 30 MINUTES (20 minuts) Addendum Addendum Addendum I was physically present for the long portions of the service provided to patient by THE RESIDENT. I have reviewed the documentation, discussed the case with resident and agree with the resident's documentation except as noted. Also the patient's clinical case was discussed with the patient's nurse. This medical document was created using an electronic medical record system with computerized dictation system. Although this document has been carefully reviewed, there might still be some phonetic and typographical errors. These areas are purely typographical due to imperfections of the software programs, and do not reflect any compromise in the patient's medical care. Late signature. LUCAS SEGOVIA Feb 22, 2025 16:08 MARY BETH YOUSSEF MD Feb 25, 2025 05:30
[2025-02-22 16:11] LABS: Magnesium 1.9 mg/dL (1.6-2.6)
[2025-02-22 17:00] VITALS: BP 125/69; PULSE 61; RESP 16; TEMP 98.1; O2SAT 98
[2025-02-22 21:00] VITALS: BP 120/60; PULSE 75; RESP 17; TEMP 98.3; O2SAT 98
[2025-02-22] MEDS: AMINO ACID INFUSION IN D10W 1,000 ML IV SCH (21:12)
[2025-02-22] MEDS ORDERED: DEXTROSE (50%) 50ML SYRG IV SCH (22:00)
[2025-02-22] MEDS: InsuLIN REG 1unit/0.01ml Soln (100units/ml) SC SCH (23:51)
[2025-02-22] MEDS: ACCU-CHEK COMFORT CURVE STRIP VI SCH (23:52)
[2025-02-23 01:00] VITALS: BP 108/65; PULSE 64; RESP 17; TEMP 98; O2SAT 98
[2025-02-23 05:00] VITALS: BP 106/65; PULSE 62; RESP 17; TEMP 98; O2SAT 99
[2025-02-23 07:44] LABS: Magnesium 1.7 mg/dL (1.6-2.6)
[2025-02-23 07:47] LABS: Alanine Aminotransferase 14 U/L (7-40); Albumin 3.7 g/dL (3.2-4.8); Alkaline Phosphatase 60 U/L (46-116); Anion Gap 14 (5-15); BUN/Creatinine Ratio 13.5 (10.0-20.0); Blood Urea Nitrogen 10 mg/dL (9-23); Carbon Dioxide 24 mmol/L (20-31); Chloride 99 mmol/L (98-107); Glucose 79 mg/dL (74-106); Potassium 4.2 mmol/L (3.5-5.1); Sodium 137 mmol/L (136-145); Total Protein 6.4 g/dL (5.7-8.2)
[2025-02-23 07:48] LABS: Bilirubin, Total 1.1 mg/dL (0.2-1.0)
[2025-02-23 07:51] LABS: Calcium 8.6 mg/dL (8.7-10.4)
[2025-02-23 09:00] VITALS: BP 116/69; PULSE 62; RESP 18; TEMP 98.2; O2SAT 98
--- NOTE | 2025-02-23 10:16 | DVH ---
KUB INDICATION: abdominal distention and pain . Comparison: 02/22/2025 FINDINGS: Marked gaseous distention of bowel loops predominantly colon. Large amount of fecal residue in the descending colon rectum IMPRESSION: 1. On previous exam distended colon with large fecal residue in the descending colon and rectum. Questi on impaction
[2025-02-23] MEDS: MAGNESIUM SULFATE 1GM/100ML 100 ML IV ONE (10:56)
--- NOTE | 2025-02-23 10:58 | DVHPN2 ---
Progress Note - Surgical Date Seen: Feb 23, 2025 Post op day Post op day: 0 Subjective Patient reports: Feels better (Patient is feeling much better, way more distended, having lots of bowel movements, still has some GoLYTELY left to drink.) Review of Systems: Deferred Objective Vital signs Vital Sign Date Time Temp Pulse Resp B/P (MAP) Pulse Ox O2 Delivery O2 Flow Rate FiO2 02/23/25 09:00 98.2 62 18 116/69 (85) 98 98.2 02/22/25 20:00 Room Air* 0 21 Total Intake and Output 02/22/25 02/22/25 02/23/25 15:00 23:00 07:00 Intake Total 700 ml 150 ml Balance 700 ml 150 ml Medications Current Medications Medications Dose Ordered Sig/Alex Route Start Time Stop Time Status Last Admin Dose Admin Ondansetron HCl 4 mg Q4HP PRN IV 02/21/25 05:15 Pantoprazole Sodium 40 mg DAILY IV 02/21/25 05:15 02/23/25 09:35 40 MG Morphine Sulfate 2 mg Q4HPRN PRN IV 02/21/25 06:15 02/21/25 06:28 2 MG Lactated Ringer's 1,000 ml @ 75 mls/hr [id number] IV 02/21/25 07:15 02/22/25 05:11 75 MLS/HR Amino Acids 0 ml @ 0 mls/hr PER PHARMACY IV 02/22/25 15:15 Amino Acids/ Electrolytes/ Dextrose 1,000 ml @ 41 mls/hr DAILY@2200 IV 02/22/25 22:00 02/22/25 21:12 41 MLS/HR Diagnostic Test (Pha) 1 strip Q6HR 02/23/25 00:00 02/23/25 05:10 1 STRIP Insulin Human Regular FOLLOW SLIDING SCALE Q6HR SC 02/23/25 00:00 Dextrose 50 ml UD IV 02/22/25 22:00 Laboratory Laboratory Tests 02/23/25 06:07 02/22/25 06:55 Test 02/23/25 06:07 Range/Units Serum Glucose 79 74-106 mg/dL Examination: GENERAL:Normal, ABDOMEN:Abnormal (Distended (very much improved), soft, depressible, nontender) Labs and/or images reviewed: Labs reviewed by me (Within normal limits), Image(s) reviewed by me (KUB from this morning showing large colon dilation with lots of stool) Problem List/Assessment/Plan Problems: (1) Constipation Assessment and Plan Mrs. Lindo same 49-year-old female who presented with severe constipation that started [address] was reviewed and it shows reece dilation of the colon and rectum with large quantities of fecal material throughout. Patient states she continues to have tiny bowel movements and passing gas. ANGEL performed at bedside, no masses felt, stool in the rectal vault (soft). Patient will benefit from aggressive bowel regimen with p.o. and rectal cathartics. Interval: For the 1st 24 hours patient did soapsuds enemas and yesterday she started drinking a gal of GoLYTELY, she still has some GoLYTELY left approximately 32 oz. she had 11 bowel movements yesterday and 3 bowel movements today already. She should finish the GoLYTELY entirely, and once she finishes it she can be started on a diet. Recommend 1. Finish remaining GoLYTELY 2. After GoLYTELY advance diet as tolerated 3. Patient will need education material on proper healthy diet, she is requesting it, she eats a lot of junk food at home 4. She is going to require a screening colonoscopy as outpatient, she has never had one 5. For home I recommended a high-fiber diet, if she requires additional supplementation with Metamucil and/or fiber gummy she needs to drink plenty of water 6. Colace 100 mg p.o. b.i.d. 7. MiraLax 1 packet daily prn constipation 8. Plenty of water intake daily 9. Educated the patient on proper diet, and the need to have at least 1 large soft bowel movement daily 10. I will sign off, please call with any questions or concerns My Orders My Orders Orders - ADDISON VELAZCO MD Procedure Category Date Status Time Npo (Nothing By DIET 02/22/25 Transmitted Mouth) Diet Dinner Plan discussed with Plan discussed with: Patient Visit Coding Surgery Date of Service if different f: Feb 23, 2025 Billing Provider: ADDISON VELAZCO MD Surgery Visit Codes: [id number] INP/OBS CARE(HIGH) ADDISON VELAZCO MD Feb 23, 2025 10:58
--- NOTE | 2025-02-23 11:21 | DVHPNRES ---
Progress Note Date Seen: Feb 23, 2025 Resident Creating Document: JULIETTE,LUCAS RESIDENT Medical Necessity Reason Pt with a Central, PICC or Fol: No Subjective Review of Systems This is a 49-year-old female with no significant past medical history, presented to the ER with chief complain of abdominal pain. The pain started 2-3 days ago, described as sharp, 10/10, worsens with eating and drinking. The pain is associated with nausea, vomiting, abdominal swelling, constipation. She reportedly vomited 10 times yesterday and has not been able to put anything down because of nausea and vomiting. No blood seen in vomitus. The patient reported having chronic constipation alternating with diarrhea, she reports this has been the most. She also reported unintentional weight loss 20 lb since last year. She denies taking any opioid medications at home, she has never completed any colonoscopy. Denies fever, diarrhea, blood in stools or dark-colored stools. PMHx: Chronic constipation PSHx: No surgeries in past Family history: History of cancer in grandfather, unsure Social history: Smoking 1 pack per day for 30 years, occasional alcohol use. Marijuana use (last use yesterday), reports no other drug use. Full code. Next of kin best friend (Barbara) Home medication: No home medications Allergic history: No known allergies The patient was seen and examined at bedside. Overnight events were reviewed. The patient had a large bowel movement after ingestion of GoLYTELY. She reports improvement in her symptoms. She was having some pain surrounding the IV cannula, nurse changed the cannula which resolved the pain. She denies chest pain, shortness of breath, fever or any other complaints today. Objective vital signs Vital Sign Date Time Temp Pulse Resp B/P (MAP) Pulse Ox O2 Delivery O2 Flow Rate FiO2 02/23/25 09:00 98.2 62 18 116/69 (85) 98 98.2 02/22/25 20:00 Room Air* 0 21 Total Intake and Output 02/22/25 02/22/25 02/23/25 15:00 23:00 07:00 Intake Total 700 ml 150 ml Balance 700 ml 150 ml medications Current Medications Medications Dose Ordered Sig/Alex Route Start Time Stop Time Status Last Admin Dose Admin Ondansetron HCl 4 mg Q4HP PRN IV 02/21/25 05:15 Pantoprazole Sodium 40 mg DAILY IV 02/21/25 05:15 02/23/25 09:35 40 MG Morphine Sulfate 2 mg Q4HPRN PRN IV 02/21/25 06:15 02/21/25 06:28 2 MG Lactated Ringer's 1,000 ml @ 75 mls/hr [id number] IV 02/21/25 07:15 02/22/25 05:11 75 MLS/HR Amino Acids 0 ml @ 0 mls/hr PER PHARMACY IV 02/22/25 15:15 Amino Acids/ Electrolytes/ Dextrose 1,000 ml @ 41 mls/hr DAILY@2200 IV 02/22/25 22:00 02/22/25 21:12 41 MLS/HR Diagnostic Test (Pha) 1 strip Q6HR 02/23/25 00:00 02/23/25 05:10 1 STRIP Insulin Human Regular FOLLOW SLIDING SCALE Q6HR SC 02/23/25 00:00 Dextrose 50 ml UD IV 02/22/25 22:00 Examination Examination Pt is lying on bed General Appearance: Alert, Oriented X3, Cooperative, Mild distress HEENT: Atraumatic, Mucous membranes moist/pink Respiratory: Clear to auscultation, Normal air movement, No added sounds Cardiovascular: Regular rate, Normal S1, Normal S2, No murmurs Abdominal/ : Bowel sounds present, abdomen is soft with decreasing tenderness, mildly distended. No shifting dullness present. Extremities: No edema, Normal pulses, No tenderness/swelling Skin: No Significant rash, except past surgical scars Neuro: Normal speech, sensorimotor deficits none Psych/Mental Status: Mental status NL, Mood NL Nurse was there as field consultant during examination laboratory and microbiology Laboratory Tests 02/23/25 06:07 02/22/25 06:55 Test 02/23/25 06:07 Range/Units Serum Glucose 79 74-106 mg/dL Labs and/or images reviewed: Labs reviewed by me, Image(s) reviewed by me Problem List/Assessment/Plan Problem List/Assessment/Plan Acute Bowel Obstruction Rule out GI malignancy Ogilive syndrome Chronic constipation due to rectal impaction CT abdomen showed Markedly dilated stool-filled primarily large bowel segments and evidence of rectal fecal impaction. X-ray KUB on 02/21/2025: Markedly dilated stool-filled primarily large bowel segments and evidence of rectal fecal impaction. 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 X-ray KUB on 02/22/2025:Markedly dilated stool-filled primarily large bowel segments and evidence of rectal fecal impaction. 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 The lung bases are unremarkable. No acute osseous abnormality identified.Impression: No interval change. X-ray KUB on 02/23/2025:FINDINGS: Marked gaseous distention of bowel loops predominantly colon. Large amount of fecal residue in the descending colon, rectum Large amount of bowel movement followed by GoLYTELY, manual disimpaction not required. Surgery recommendations appreciated: Advance diet as tolerated, patient currently on clear liquid Magnesium, phosphorus level WNL Colace 100 mg p.o. b.i.d. MiraLax p.r.n. Outpatient screening colonoscopy as per surgery recommendations. IV amino acid infusion Clinimix per pharmacy PEG 3350 KCl sodium bicarb 1 kit p.o. once 1. IV NS bolus and maintenance IV morphine for pain management IV pantoprazole ordered Hold off NG tube placement, unless the patient starts vomiting. GI consultstations also recommended to continue with enema and monitoring. The patient is counseled to eat high-fiber diet. Educated patient on proper healthy diet. Patient is advised to take plenty of water Normocytic normochromic anemia Anemia of chonic disease monitor labs Hyperglycemia Glucose Accu-Chek every 6 hours. HbA1c 5.2 Small hiatal hernia Cholelithiasis Kidney cyst CT abdomen shows small hiatal hernia, cholelithiasis, 1.9 cm cyst Pantoprazole Monitor signs symptoms. Marijuana and tobacco use disorder drug screen positive counseled regarding cessation GI prophylaxis: Pantoprazole DVT prophylaxis: SCDs Diet: Clear liquid Case discussed with Dr. Youssef, patient and RN Plan discussed with: Patient, Other (RN) Dietary Evaluation Review Comments: 1) Increase TPN rate to meet at least 75% of estimated daily needs 2) Advance to GI soft diet when medically feasible 3) Follow-up with gastroenterology 4) Continue to monitor I&O, labs, and skin integrity Expected Outcomes/Goals: 1) nutritional support to meet at least 75% of estimated daily needs 2) diet to advance 3) GI symptoms to resolve 4) f/u in 3-5 days Addendum Addendum Addendum I was physically present for the long portions of the service provided to patient by THE RESIDENT. I have reviewed the documentation, discussed the case with resident and agree with the resident's documentation except as noted. Also the patient's clinical case was discussed with the patient's nurse. This medical document was created using an electronic medical record system with computerized dictation system. Although this document has been carefully reviewed, there might still be some phonetic and typographical errors. These areas are purely typographical due to imperfections of the software programs, and do not reflect any compromise in the patient's medical care. Late signature. Date of Service: Feb 23, 2025 Billing Provider: MARY BETH YOUSSEF MD Common Visit Codes: [id number] INP/OBS CARE(HIGH) LUCAS SEGOVIA RESIDENT Feb 23, 2025 11:21 MARY BETH YOUSSEF MD Feb 25, 2025 05:35
[2025-02-23 12:54] VITALS: BP 136/73; PULSE 63; RESP 20; TEMP 97.9; O2SAT 96
[2025-02-23] MEDS ORDERED: POLYETHYLENE GLYCOL 17 GM PWDR PO PRN (13:30)
[2025-02-23] MEDS: SODIUM PHOSPHATES 24 MEQ in SODIUM CHL 0.9% 100 ML IV ONE (16:11)
[2025-02-23 16:54] VITALS: BP 113/67; PULSE 67; RESP 18; TEMP 98.2; O2SAT 97
[2025-02-23 21:00] VITALS: BP 127/71; PULSE 62; RESP 17; TEMP 98; O2SAT 96
[2025-02-23] MEDS: DOCUSATE SOD 100 MG CAP PO SCH (22:21)
[2025-02-24 01:00] VITALS: BP 108/64; PULSE 57; RESP 18; TEMP 97.7; O2SAT 95
[2025-02-24 05:00] VITALS: BP 112/65; PULSE 57; RESP 18; TEMP 98; O2SAT 97
[2025-02-24 07:59] LABS: Alanine Aminotransferase 13 U/L (7-40); Albumin 3.3 g/dL (3.2-4.8); Alkaline Phosphatase 54 U/L (46-116); Anion Gap 9 (5-15); Carbon Dioxide 28 mmol/L (20-31); Chloride 102 mmol/L (98-107); Magnesium 1.7 mg/dL (1.6-2.6); Sodium 139 mmol/L (136-145); Total Protein 5.9 g/dL (5.7-8.2)
[2025-02-24 08:00] LABS: BUN/Creatinine Ratio 6.6 (10.0-20.0); Bilirubin, Total 1.0 mg/dL (0.2-1.0); Blood Urea Nitrogen < 5 mg/dL (9-23); Calcium 8.2 mg/dL (8.7-10.4); Glucose 106 mg/dL (74-106); Potassium 3.2 mmol/L (3.5-5.1)
[2025-02-24 09:00] VITALS: BP 127/76; PULSE 62; RESP 16; TEMP 98.4; O2SAT 98
[2025-02-24] MEDS: MAGNESIUM SULFATE 1GM/100ML 100 ML IV ONE (10:53)
[2025-02-24] MEDS: POTASSIUM EFFERVESENT TAB 25 MEQ PO ONE (10:53)
[2025-02-24 13:00] VITALS: BP 114/80; PULSE 70; RESP 17; TEMP 98.3; O2SAT 98
[2025-02-24 17:00] VITALS: BP 112/79; PULSE 73; RESP 17; TEMP 98.5; O2SAT 98
[2025-02-24] MEDS ORDERED: POLY33505 PO (17:18)
[2025-02-24] MEDS ORDERED: DOCU-265 PO (17:18)
[2025-02-24] MEDS ORDERED: POTA-36 PO (17:18)
--- NOTE | 2025-02-24 17:20 | DVHDSRES ---
Discharge Summary Date of Admission Resident Creating Document: MINESH LU RESIDENT Feb 21, 2025 at 05:15 Date of Discharge: Feb 24, 2025 Admitting Diagnosis Abdominal pain Wounds: none Labs/Diagnostic Data: Laboratory Results Test 02/24/25 07:05 02/23/25 11:55 02/22/25 06:55 02/21/25 12:16 Sodium Level 139 mmol/L (136-145) Potassium Level 3.2 mmol/L (3.5-5.1) Chloride Level 102 mmol/L (98-107) Carbon Dioxide Level 28 mmol/L (20-31) Anion Gap 9 (5-15) Blood Urea Nitrogen < 5 mg/dL (9-23) Creatinine 0.76 mg/dL (0.550-1.02) Glomerular Filtration Rate Calc 97 mL/min (>90) BUN/Creatinine Ratio 6.6 (10.0-20.0) Serum Glucose 106 mg/dL (74-106) Calcium Level 8.2 mg/dL (8.7-10.4) Phosphorus Level 3.3 mg/dL (2.4-5.1) Magnesium Level 1.7 mg/dL (1.6-2.6) Total Bilirubin 1.0 mg/dL (0.2-1.0) Aspartate Amino Transferase (AST) 23 U/L (13-40) Alanine Aminotransferase (ALT) 13 U/L (7-40) Alkaline Phosphatase 54 U/L (46-116) Total Protein 5.9 g/dL (5.7-8.2) Albumin 3.3 g/dL (3.2-4.8) POC Glucose 74 mg/dl (70-106) White Blood Count 6.8 10^3/uL (4.4-10.8) Red Blood Count 4.58 10^6/uL (4.0-5.20) Hemoglobin 12.0 g/dL (12.2-16.2) Hematocrit 37.5 % (36.0-46.0) Mean Corpuscular Volume 81.9 fL (80.0-100.0) Mean Corpuscular Hemoglobin 26.3 pg (28.0-32.0) Mean Corpuscular Hemoglobin Concent 32.1 g/dL (32.0-36.0) Red Cell Distribution Width 16.1 % (11.8-14.3) Platelet Count 247 10^3/uL (140-450) Mean Platelet Volume 7.6 fL (6.9-10.8) Neutrophils (%) (Auto) 72.2 % (37.0-80.0) Lymphocytes (%) (Auto) 20.2 % (10.0-50.0) Monocytes (%) (Auto) 6.3 % (0.0-12.0) Eosinophils (%) (Auto) 0.3 % (0.0-7.0) Basophils (%) (Auto) 1.0 % (0.0-2.0) Neutrophils # (Auto) 4.9 10 ^3/uL (1.6-8.6) Lymphocytes # (Auto) 1.4 10 ^3/uL (0.4-5.4) Monocytes # (Auto) 0.4 10 ^3/uL (0-1.3) Eosinophils # (Auto) 0 10 ^3/uL (0-0.8) Basophils # (Auto) 0.1 10 ^3/uL (0-0.2) Nucleated Red Blood Cells 0.1 % Urine Color Light-yellow (Yellow) Urine Clarity Clear (Clear) Urine pH 6.0 (5.0-9.0) Urine Specific [place] 1.019 (1.001-1.035) Urine Protein Negative (Negative) Urine Ketones 4+ (Negative) Urine Blood 1+ /uL (Negative) Urine Nitrite Negative (Negative) Urine Bilirubin Negative (Negative) Urine Urobilinogen Normal mg/dL (Negative) Urine Leukocyte Esterase Negative /uL (Negative) Urine RBC 10 /hpf (0 - 4) Urine Microscopic WBC 1 /HPF (0-5) Urine Squamous Epithelial Cells Few /hpf (<5) Urine Bacteria None seen /hpf (None Seen) Urine Glucose Normal mg/dL (Normal) Urine Opiates Screen Neg (NEGATIVE) Urine Fentanyl Screen Neg (NEGATIVE) Urine Barbiturates Screen Neg (NEGATIVE) Urine Phencyclidine Screen Negative (NEGATIVE) Urine Amphetamines Screen Neg (NEGATIVE) Urine Benzodiazepines Screen Neg (NEGATIVE) Urine Cocaine Screen Neg (NEGATIVE) Urine Cannabinoids Screen Pos (NEGATIVE) Test 02/21/25 08:05 02/21/25 05:50 02/21/25 02:16 Lactic Acid Level 1.1 mmol/L (0.4-2.0) Prothrombin Time 11.0 sec (9.3-11.8) Prothrombin Time INR 1.04 (0.9-1.15) Activated Partial Thromboplast Time 27.0 SEC (24.5-34.5) Hemoglobin A1c 5.2 % A1C (<5.7) Vitamin B12 Level 593 pg/mL (211-911) Thyroid Stimulating Hormone (TSH) 2.09 uIU/mL (0.55-4.78) Lipase 28 U/L (12-53) Beta HCG, Quantitative 0.6 mIU/mL (1.5-4.2) Other Laboratory Tests 02/24/25 07:05 02/22/25 06:55 Brief Hx & Hospital Course: Patient is a 49-year-old female with no significant medical history came to the hospital with a chief complaint of abdominal pain that started 2-3 days ago which got worse with the eating and drinking and had associated intractable nausea vomiting and abdominal pain. Patient reports that she has been having chronic constipation alternating with diarrhea for the past 1 year and has lost about 15-20 lb of weight in the last 1 year unintentionally. 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 Surgical consult was placed who recommended the patient getting a scheduled enemas. Patient was given scheduled enemas on the 1st day with the good bowel movements and patient feeling better. GI were consulted who recommended the patient to get GoLYTELY 1 gallon which was administered and the patient had large amount of bowel movements. As the patient's symptoms improved she was started on clear liquid diet which she tolerated when and was advanced to full liquid and soft diet which she tolerated well without feeling any nausea or vomiting. Patient was cleared from surgery for outpatient follow up with the GI for a colonoscopy. Appointment was made in the discharge clinic from with the patient will be referred to the gastroenterology clinic. Patient was given instructions about high-fiber diet and drinking plenty of fluids. She was also prescribed stool softeners and laxatives. Physical examination on date of discharge: General Appearance: Alert, Oriented X3, Cooperative, Mild distress HEENT: Atraumatic, Mucous membranes moist/pink Respiratory: Clear to auscultation, Normal air movement, No added sounds Cardiovascular: Regular rate, Normal S1, Normal S2, No murmurs Abdominal/ : Bowel sounds present, abdomen is soft with decreasing tenderness, mildly distended. No shifting dullness present. Extremities: No edema, Normal pulses, No tenderness/swelling Skin: No Significant rash, except past surgical scars Neuro: Normal speech, sensorimotor deficits none Psych/Mental Status: Mental status NL, Mood NL Nurse was there as medical oncology physician during examination Discussed with Dr. Youssef Consults/Reason for consult Surgery consultation for a possible bowel obstruction// GI consultation for possible bowel obstruction Operations or Procedures CT abdomen pelvis without IV or oral contrast Findings: Evaluation of solid organs is limited due to lack of intravenous contrast use. Lung Bases: No acute or significant lung base finding. Normal heart size. No pleural or pericardial effusion. Liver: The liver is normal in size. No focal lesions. Gallbladder and Biliary Tree: Cholelithiasis. Spleen: Unremarkable Pancreas: The pancreas is grossly normal in appearance. Adrenal Glands: Unremarkable Kidneys: 1.9 cm focus of diminished parenchymal attenuation within the left interpolar kidney may represent a cyst, however, pyelonephritis can not be completely excluded. No evidence of calculi or hydronephrosis. Bladder: Grossly unremarkable for degree of distention. Bowel: Small hiatal hernia with air-fluid level. Markedly dilated stool-filled primarily large bowel segments and evidence of rectal fecal impaction with maximum diameter measuring 9.4 cm. The appendix is not visualized; however, no secondary findings of acute appendicitis identified. Ascites: Absent Lymphadenopathy: No mesenteric, retroperitoneal or periportal lymphadenopathy. Abdominal Wall and Mesentery: Unremarkable. Vasculature: The visualized abdominal aorta is normal in size and caliber. Atherosclerotic vascular calcifications. Evaluation of abdominal and pelvic vessels is limited due to lack of intravenous contrast. Pelvic Organs: Unremarkable Musculoskeletal: No aggressive focal bony lesions, acute fractures or dislocation. IMPRESSION: 1. Markedly dilated stool-filled primarily large bowel segments and evidence of rectal fecal impaction. 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 2. Small hiatal hernia with air-fluid level. 3. Cholelithiasis. 4. 1.9 cm focus of diminished parenchymal attenuation within the left interpolar kidney may represent a cyst, however, pyelonephritis can not be completely excluded. 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 electrolyte imbalance, hypokalemia Discharge Disposition: Home Discharge Instruct/Medications Diet: See Comment Diet comment: high fiber diet drink plenty of water atleast 2L per day Activity: No Restrictions, As Tolerated Follow Up/Referral: Follow up at the discharge clinic in one week Follow up in the gastroenterology ooutpatient clinic in 2-4 weeks to be scheduled at the discharge clinic for outpatient colonoscopy Medications: miralax 17gm daily for constipation colace 100mg twice daily for constipation potassium chloride 10Meq daily X 10 days metamuesil once daily as prescribed Scheduled Docusate Sodium (Docusate Sodium), 100 MG PO BID Polyethylene Glycol (Miralax), 17 GM PO DAILY Potassium Chloride (Potassium Chloride Cr), 10 MEQ PO DAILY Discharge Statement: "Patient was advised to return to the ER or call 911 if any headaches, dizziness, shortness of breath, chest pain, abdominal pain, bleeding, fevers, or worsening of medical condition. Patient was counseled about treatment plan, medications, possible side effects, patientverbalized understanding. All questions were answered to the best of my ability. 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 I have reviewed the documentation, discussed the case with resident and agree with the resident's documentation except as noted. Also the patient's clinical case was discussed with the patient's nurse. This medical document was created using an electronic medical record system with computerized dictation system. Although this document has been carefully reviewed, there might still be some phonetic and typographical errors. These areas are purely typographical due to imperfections of the software programs, and do not reflect any compromise in the patient's medical care. Late signature. Date of Service: Feb 24, 2025 Billing Provider: MARY BETH YOUSSEF MD Common Visit Codes: 00123-MRE/OBS DISCH DAY >30min MINESH LU RESIDENT Feb 24, 2025 17:20 MARY BETH YOUSSEF MD Feb 25, 2025 05:31
== END 2025-02-24 17:45 | disposition home or self-care (01) | DRG 254 ==
LOC: EDBD 01:29 → ER 01:29 → OVERFLOW 05:15 → CENTRAL 14:52
PROVIDERS: ADMIT Internal Medicine; ATTEND Emergency Medicine
DX: K59.09 Other constipation (principal); K56.699 Other intestinal obstruction unspecified as to partial versus complete obstruction; K59.81 Ogilvie syndrome; K44.9 Diaphragmatic hernia without obstruction or gangrene; K80.20 Calculus of gallbladder without cholecystitis without obstruction; F17.210 Nicotine dependence, cigarettes, uncomplicated; N28.1 Cyst of kidney, acquired; D64.9 Anemia, unspecified; F12.90 Cannabis use, unspecified, uncomplicated; R73.9 Hyperglycemia, unspecified; E87.6 Hypokalemia; Z80.3 Family history of malignant neoplasm of breast; Z71.6 Tobacco abuse counseling
CPT/HCPCS: 36415; 74018; 74176; 80048; 80053; 80307; 81001; 82607; 82962; 83036; 83605; 83690; 83735; 84100; 84443; 84702; 85025; 85610; 85730; 96365; 96372; 96375; G0378; J1885; J2405; J2470; J3490